=== PATIENT | female | born 1950 | race Caucasian/White ===

== ENCOUNTER 2017-08-18 11:30 | Emergency (ER) | payer BC, OTHER ==
[2017-08-18 11:52] VITALS: TEMP 98.1
--- NOTE | 2017-08-18 12:48 | EDPHY ---
H & P Stated Complaint: FALL DOWN STAIRS. HAND AND HEAD PAIN. DENIED LOC Time Seen by Provider: 08/18/17 12:00 HPI/ROS: Chief complaint: Fall with head and chest injury History of present illness: This is a 67-year-old female who presents to the emergency department for evaluation after sustaining a fall on [address], 2 days ago, sustaining an injury to her head and chest. Patient states she slipped and fell down the stairs. She struck the left side of her head against the stairs. She also struck the right side of her chest. She did not lose consciousness. However since then she has had persistent pain most pronounced on the right side of the chest. The she denies other associated signs or symptoms including no report of pain or trauma to the neck, the spine itself, the abdomen, pelvis or the extremities. No report of neurologic symptoms such as paresthesias, weakness or paralysis or bowel or bladder dysfunction. Review of systems: A 10 point review of systems was obtained and other than described above was negative - Personal History Current Tetanus/Diphtheria Vaccine: Yes Current Tetanus Diphtheria and Acellular Pertussis (TDAP): Yes - Medical/Surgical History Hx Asthma: Yes Hx Chronic Respiratory Disease: No Hx Diabetes: No Hx Cardiac Disease: No Hx Renal Disease: No Hx Cirrhosis: No Hx Alcoholism: No Hx HIV/AIDS: No Hx Splenectomy or Spleen Trauma: No Other PMH: ASTHMA - Social History Smoking Status: Never smoked - Physical Exam Exam: General Appearance: Alert, nontoxic Eyes: PERRLA ENT: No hemotympanum, no bhandari sign, no raccoon eyes Respiratory: Lungs clear to auscultation bilaterally Cardiac: Regular rate and rhythm. Gastrointestinal: Bowel sounds normal. Abdomen is soft, nondistended, nontender to palpation. Neurological: Alert and oriented x4. Cranial nerves 2-12 grossly intact. Strength and sensation intact and symmetrical. Skin: Hematoma to the left parietal scalp. No open wound. There are abrasions to the left and right side of the back the thoracic level. No repairable lesions. Musculoskeletal: Hematoma noted left parietal scalp, no tenderness or crepitus on palpation. The rest of the head is nontender. The spine is nontender to palpation along its entire length, there is no crepitus, bony deformity or step- off. There is tenderness over the right chest wall. However no subcutaneous air is appreciated. Patient moving all extremities without difficulty. Constitutional: Initial Vital Signs Temperature (C) 36.7 C 08/18/17 11:48 Heart Rate 78 08/18/17 11:48 Respiratory Rate 16 08/18/17 11:48 Blood Pressure 147/99 H 08/18/17 11:48 O2 Sat (%) 95 08/18/17 11:48 O2 Delivery Mode Room Air Allergies/Adverse Reactions: Penicillins Allergy (Verified 08/18/17 11:45) Home Medications: Medication Instructions Recorded Aspirin 08/18/17 Hydrocodone/APAP 5/325 [[place] 1 tab PO Q6H #12 tab 08/18/17 5/325 (*)] Proair Hfa 08/18/17 Protonix 08/18/17 Medical Decision Making - Diagnostics Imaging Results: Imaging Impressions Chest X-Ray 08/18/17 12:11 Impression: 1. Fractures of the posterior right third through fifth ribs with displacement. 2. No evidence of pneumothorax. 3. Moderate hiatal hernia. Head CT 08/18/17 12:11 Impression: 1. There is a 3.2 x 3.8 x 1.1 cm scalp hematoma along the posterior vertex, with no underlying skull fracture. 2. There is no acute intracranial abnormality identified on this unenhanced CT evaluation. If there is further clinical concern regarding the patient's symptoms, MR imaging is suggested, if not otherwise contraindicated. Findings were discussed with ROLDAN Rowell at 13:06, on 08/18/2017. Scapula X-Ray 08/18/17 12:11 Impression: 1. No evidence of right scapular fracture. 2. Fractures of the posterior right third through fifth ribs noted. Ribs X-Ray 08/18/17 12:44 Impression: 1. Fractures of the posterior right third through fifth ribs with displacement. 2. No evidence of pneumothorax. 3. Moderate hiatal hernia. Imaging: Discussed imaging studies w/ archivist political history Radiologist, I viewed and interpreted images myself ED Course/Re-evaluation: Patient seen under the supervision of my secondary supervising physician Dr. Torsten Gaines. Patient presents to the emergency department for evaluation after sustaining a fall 2 days ago injuring her head and the right side of her chest. She is nontoxic. CT scan of the head is negative other than small hematoma. Chest x-ray reveals 3 rib fractures. By history and physical exam I do not appreciate evidence of trauma to other parts of the body. It has been 2 days since the accident and she has been doing well at home on her own. I do believe she is appropriate for discharge. Home care is discussed including pain management with topical medications such as lidocaine patches as well as oral medications. She is given incentive spirometry. She is to follow up with her primary care doctor for recheck. Strict return precautions are given. Differential Diagnosis: Included but not limited to soft tissue injury such as contusion, sprain or strain, bony fracture, intrathoracic injury, intracranial injury - Data Points Medications Given: Discontinued Medications Hydrocodone Bitart/Acetaminophen ([place] 5/325) 2 tab PO EDNOW ONE Stop: 08/18/17 13:21 Last Admin: 08/18/17 13:22 Dose: 2 tab Hydrocodone Bitart/Acetaminophen ([place] 5/325mg Prepack#6) 1 btl TAKEHOME EDNOW ONE Stop: 08/18/17 14:00 Last Admin: 08/18/17 14:04 Dose: 1 btl Lidocaine (Lidoderm 5%) 1 ea TD DAILY CONG Stop: 02/15/18 08:59 Last Admin: 08/18/17 14:09 Dose: 1 ea Departure - Departure Disposition: Home, Routine, Self-Care Clinical Impression: Ribs, multiple fractures Qualifiers: Encounter type: initial encounter Fracture type: closed Laterality: right Qualified Code(s): S22.41XA - Multiple fractures of ribs, right side, initial encounter for closed fracture Condition: Good Instructions: Rib Fracture (ED) Additional Instructions: Follow-up with your primary care doctor this week for recheck In regards to pain control see the following: Use ibuprofen 400 mg 3 times a day for the next 2-3 days for pain In addition You have been prescribed [[place]] for pain. [[place]] contains Tylenol, do not take extra Tylenol/acetaminophen/Apap with it. It is sedating. Use incentive spirometry as discussed If symptoms worsen or new symptoms develop return to the emergency room for recheck Referrals: JOSE KRISHNAMURTHY [Other] - As per Instructions Prescriptions: Hydrocodone/APAP 5/325 [[place] 5/325 (*)] 1 tab PO Q6H #12 tab
[2017-08-18] MEDS ORDERED: HYDROCODONE/APAP 5/325 TAB PO ONE (13:20)
[2017-08-18] MEDS ORDERED: HYDROCODONE/APAP 5/325 TAB ONE (13:21)
[2017-08-18] MEDS ORDERED: HYDROCOD/APAP 5/325 PREPACK#6 BTL TAKEHOME ONE (13:59)
[2017-08-18] MEDS ORDERED: LIDOCAINE 5% 1 EA PATCH TD ONE (14:08)
[2017-08-18 14:43] VITALS: BP 132/87; PULSE 87; RESP 18; O2SAT 96
[2017-08-18] MEDS ORDERED: PATCH REMOVAL 1 EA PATCH TD SCH (21:00)
[2017-08-19] MEDS ORDERED: LIDOCAINE 5% 1 EA PATCH TD SCH (09:00)
== END 2017-08-18 14:43 | disposition home or self-care (01) ==
DX: S22.41XA Multiple fractures of ribs, right side, initial encounter for closed fracture (principal); J45.909 Unspecified asthma, uncomplicated; Z79.82 Long term (current) use of aspirin; W01.198A Fall on same level from slipping, tripping and stumbling with subsequent striking against other object, initial encounter; Y99.8 Other external cause status; Y93.89 Activity, other specified